=== PATIENT | female | born 1990 | race Caucasian/White ===

== ENCOUNTER 2024-09-24 17:51 | Emergency (ER) | payer OTHER ==
[~2024-09-24] VITALS: Ht 162.6 cm; Wt 59.0 kg
[2024-09-24 18:06] VITALS: BP 152/94; TEMP 98.7; O2SAT 100
[2024-09-24] MEDS: ONDANSETRON HCL/PF 4 MG/2 ML VIAL IV ONE (21:20)
[2024-09-24] MEDS: IV NS 0.9% 1,000 ML BAG IV ONE (21:20)
== END 2024-09-24 21:22 | disposition left against medical advice (07) ==
LOC: ER 18:13
DX: R11.2 Nausea with vomiting, unspecified (principal); Z53.21 Procedure and treatment not carried out due to patient leaving prior to being seen by health care provider